=== PATIENT | female | born 1985 | race Native Hawaiian/Other Pacific Islander ===

== ENCOUNTER 2017-10-20 18:20 | Inpatient (IN) | payer OTHER ==
--- NOTE | 2017-10-20 19:21 | History and Physical Report ---
History of Present Illness Date of examination: 10/20/17 Date of admission: 10/20/17 18:21 Chief complaint: Contractions History of present illness: 32yo G 5 P 4 0 0 4 here with c/o contractions since 1am and worsening. Reports + FM and denies VB or LOF. Her course was complicated by late care, anemia and vit D deficiency. She has a h/o chronic hepatitis B and genital herpes. She denies genital sores or recent herpes outbreak. She is GBS negative. Past History Past Medical History: hepatitis Past Surgical History: no surgical history [employer] History: chlamydia, gonorrhea, hepatitis B, herpes Family/Genetic History: diabetes (Type II) Social history: , lives with family, full code - Obstetrical History Expected Date of Delivery: 10/31/17 Actual Gestation: 38 Week(s) 3 Day(s) : 5 Para: 4 Hx # Term Pregnancies: 4 Number of Pregnancies: 0 Spontaneous Abortions: 0 Induced : 0 Number of Living Children: 4 Medications and Allergies Allergies Allergy/AdvReac Type Severity Reaction Status Date / Time No Known Allergies Allergy Unverified 03/15/14 17:19 Home Medications Medication Instructions Recorded Confirmed Last Taken Type Acyclovir 400 mg PO BID 03/15/14 03/15/14 03/15/14 08:00 History Review of Systems All systems: negative - Physical Exam Cardiovascular: Regular rate, Normal S1, Normal S2, No murmurs Lungs: Positive: Clear to auscultation, Normal air movement Abdomen: Positive: normal appearance, soft Genitourinary (Female): Positive: normal external genitalia, normal perenium. Negative: perineal/vulvar lesions Vulva: both: normal Vagina: Positive: normal moisture Uterus: Positive: normal size, normal contour Anus/Rectum: Positive: normal perianal skin Extremities: Positive: normal Deep Tendon Reflex Grade: Normal +2 - Obstetrical FHR: auscultation normal, category 1 FHR comments: baseline 150, moderate variability Uterine Contraction Monitor Mode: Palpation Cervical Dilatation: 10 Cervical Effacement Percentage: 100 station: +1 Uterine Contraction Frequency (min): 2 Uterine Contraction Pattern: Regular Results Result Diagrams: 10/20/17 19:00 All other labs normal. Assessment and Plan - Patient Problems (1) 38 weeks gestation of Current Visit: Yes Status: Acute (2) Active labor at term Current Visit: Yes Status: Acute Plan to address problem: Admit to L&D with routine labor orders Anticipate imminent vaginal delivery (3) Chronic hepatitis B Current Visit: Yes Status: Acute Plan to address problem: Diagnosed in 2011
[2017-10-20 19:22] LABS: Hematocrit 36.9 % (30.3-42.9); Hemoglobin 11.7 gm/dl (10.1-14.3); Mean Corpuscular HGB Conc 32 % (30-34); Mean Corpuscular Hemoglobin 28 pg (28-32); Mean Corpuscular Volume 90 fl (79-97); Platelet Count 303 K/mm3 (140-440); Red Blood Count 4.12 M/mm3 (3.65-5.03); Red Cell Distribution Width 17.4 % (13.2-15.2)
[2017-10-20] MEDS ORDERED: TYLENOL PO PRN (19:27)
[2017-10-20] MEDS ORDERED: TUCKS PAD TP PRN (19:27)
[2017-10-20] MEDS ORDERED: NORCO 5/325 PO PRN (19:27)
[2017-10-20] MEDS ORDERED: PHENERGAN PO PRN (19:27)
[2017-10-20] MEDS ORDERED: BENADRYL PO PRN (19:27)
[2017-10-20] MEDS ORDERED: LANSINOH TP PRN (19:27)
[2017-10-20] MEDS ORDERED: PHENERGAN PR PRN (19:27)
[2017-10-20] MEDS ORDERED: DULCOLAX PR PRN (19:27)
[2017-10-20] MEDS ORDERED: ZOFRAN IV PRN (19:27)
[2017-10-20] MEDS ORDERED: MILK OF MAGNESIA PO PRN (19:27)
[2017-10-20] MEDS ORDERED: SUBLIMAZE IV ONE (19:33)
[2017-10-20] MEDS ORDERED: SUBLIMAZE ONE (19:35)
[2017-10-20] MEDS ORDERED: SODIUM CHLORIDE FLUSH SYRINGE 10 ML IV NR (20:00)
[2017-10-20] MEDS ORDERED: NORMOSOL-R PH 7.4 1,000 ML IV SCH (20:00)
[2017-10-20] MEDS ORDERED: PITOCin/NS 20 UNIT/1000ML DRIP 20 UNITS/1,000 ML BAG IV SCH (20:00)
--- NOTE | 2017-10-20 20:01 | Procedure Note ---
OB Delivery Note - Delivery Date of Delivery: 10/20/17 (18:49) Surgeon: WASHINGTON RIZO Estimated blood loss: 300cc - Vaginal Delivery presentation: vertex Delivery position: OA Intrapartum events: none Delivery induction: none Delivery augmentation: rupture of membranes (AROM @ 18:47) Delivery monitor: external FHT, external uterine Route of delivery: Delivery placenta: spontaneous (18:59) Delivery cord: 3 umbilical vessels Episiotomy: none Delivery laceration: none Anesthesia: none Delivery comments: of a vigorous term 7lbs 5oz female @ 18:49. Baby placed [id number] on maternal abdomen. After 3 mins, umbilical cord double-clamped and cut by patient. Cord blood collected. Spontaneous delivery of placenta Cristal-side presenting @ 18:59 accompanied by moderate lochia. Fundal massage and IV pitocin bolus initiated. Fundus F/ML/U-2. Placenta intact; was discarded. Perineum intact. Continuous trickling of blood noted. Clots manually removed under IV sedation. Pt tolerated the procedure well. Light lochia. Mom and baby in stable condition. - Infant A at 1 minute: 7 at 5 minutes: 8 Gender: Female (7 lbs 5 oz (3320 gm); 20.5 in)
[2017-10-21 07:37] LABS: Hematocrit 31.2 % (30.3-42.9); Hemoglobin 10.2 gm/dl (10.1-14.3)
[2017-10-21] MEDS: MOTRIN PO SCH ×3 (08:20→20:43)
[2017-10-21] MEDS ORDERED: PRENATAL VITAMIN PO SCH (10:00)
--- NOTE | 2017-10-21 10:17 | Progress Note ---
Assessment and Plan A: PP Day#1 Stable P: Follow Routine Orders D/C Home today per patient request RTO in 6 Weeks Subjective - Subjective Date of service: 10/21/17 Patient reports: appetite normal, voiding normally, pain well controlled, flatus , ambulating normally : doing well Objective - Vital Signs Latest vital signs: Vital Signs Temp Pulse Resp BP BP Pulse Ox 10/21/17 04:40 98.7 F 69 18 119/76 98 10/21/17 01:00 98.0 F 78 18 127/72 96 10/20/17 21:50 98.2 F 70 18 136/71 98 10/20/17 20:26 97.7 F 71 12 123/72 10/20/17 20:25 69 130/74 10/20/17 20:22 71 123/72 10/20/17 20:10 78 131/77 10/20/17 19:55 72 122/68 10/20/17 19:40 86 134/77 10/20/17 19:25 75 143/84 Intake and Output 10/20/17 10/21/17 10/21/17 22:59 06:59 14:59 Intake Total 120 360 Output Total 1000 Balance 120 -640 Intake: Oral 120 360 Output: Urine 1000 Void 1000 Other: Total, Intake Amount 120 120 Total, Output Amount 400 Weight 84.822 kg Estimated Blood Loss 300 - Exam Breasts: Present: normal Cardiovascular: Present: Regular rate Lungs: Present: Clear to auscultation, Normal air movement Abdomen: Present: normal appearance, soft, normal bowel sounds Uterus: Present: normal, firm, fundal height below umbilicus Extremities: Present: normal - Labs Labs: Abnormal lab results 10/20/17 Range/Units 19:00 RDW 17.4 H (13.2-15.2) %
--- NOTE | 2017-10-21 10:18 | Discharge Summary ---
Providers - Providers Date of Admission: 10/20/17 18:21 Date of discharge: 10/21/17 Attending physician: ISABELLE WHITE MD Primary care physician: ISABELLE WHITE MD Hospitalization Reason for admission: active labor Delivery: Episiotomy: none Laceration: none Other procedures: none complications: none Discharge diagnosis: IUP at term delivered Lottie baby: female Condition at discharge: Good Disposition: DC-01 TO HOME OR SELFCARE Plan - Provider Discharge Summary Activity: routine, no sex for 6 weeks, no heavy lifting 4 weeks, no strenuous exercise Diet: routine Instructions: routine Additional instructions: [] Smoking cessation referral if applicable(refer to patient education folder for contact #) [] Refer to [facility] Booklet Call your doctor immediately for: * Fever > 100.5 * Heavy vaginal bleeding ( >1 pad per hour) * Severe persistent headache * Shortness of breath * Reddened, hot, painful area to leg or breast * Drainage or odor from incision. * Keep incision clean and dry at all times and follow doctor's instructions regarding bathing/showering - Follow up plan Follow up: ISABELLE WHITE MD [Primary Care Provider] - 6 Weeks
[2017-10-21 19:58] VITALS: BP 133/83
[2017-10-21] MEDS ORDERED: BOOSTRIX IM ONE (20:45)
== END 2017-10-22 00:03 | disposition home or self-care (01) | DRG 774 ==
LOC: TRG 18:20 → LD 18:21 → OB 21:27
PROVIDERS: ADMIT Obstetrics & Gynecology; ATTEND Obstetrics & Gynecology
PROC: 10E0XZZ Delivery of Products of Conception, External Approach (ICD-10-PCS; principal; 2017-10-20)
DX: O98.42 Viral hepatitis complicating childbirth (principal); B18.1 Chronic viral hepatitis B without delta-agent; Z3A.38 38 weeks gestation of pregnancy; Z37.0 Single live birth; Z88.3 Allergy status to other anti-infective agents
CPT/HCPCS: 36415; 85014; 85018; 85027; 86592; 86850; 86900; 86901; 90471; 90715; 99211; A6250; G0463; J2590; J3010